=== PATIENT | female | born 1970 | race African-American/Black ===

== ENCOUNTER 2020-09-28 10:10 | Emergency (ER) | payer SELFPAY ==
[~2020-09-28] VITALS: Ht 165.1 cm; Wt 76.2 kg
[2020-09-28 10:15] VITALS: BP 143/89
--- NOTE | 2020-09-28 10:23 | NUR ---
pt arrives to ER with complaints of right ankle pain secondary to right ankle injury. pt states falling on Monday. since injury pt has complained of pain, swelling, and limited movement from extremity. pt has good cap refill. pt has applied RICE intervention.
[2020-09-28] MEDS ORDERED: TYLENOL EXTRA500 MG ORAL (11:27)
--- NOTE | 2020-09-28 13:52 | Diagnostic Imaging Report ---
Indication: Right ankle pain Technique: XRAY Ankle Compl Min 3v R Comparison: None Findings: Bone mineralization within normal limits. No acute fracture identified. Ankle mortise is intact. There is a small dorsal calcaneal enthesophyte. No radiopaque foreign body. Impression: No acute fracture or dislocation
--- NOTE | 2020-09-28 13:59 | Diagnostic Imaging Report ---
Indication: Right foot pain Technique: 3 views of the right foot Comparison: None Findings: Bone mineralization is within normal limits. No acute fracture is identified. Lisfranc ligament with what is maintained. No radiopaque foreign body. Impression: No acute fracture or dislocation.
--- NOTE | 2020-10-02 06:58 | Emergency Room Report ---
History of Present Illness General Chief Complaint: Lower Extremity Injury Source: Patient Present Illness HPI 50-year-old female presents for evaluation. Complaining of right ankle pain and swelling. States that 3 days ago she rolled her ankle. Still is having pain. Pain is throbbing, 4 out of 10, nonradiating is able to bear weight but with pain. Denies any other injuries. No other aggravating relieving factors. 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 COVID-19 Screening: Negative COVID-19 COVID-19 Testing Source: [employer] Patient History Past Medical History: none Past Surgical History: none Pertinent Family History: none Social History: Denies: smoking, alcohol use, drug use Last Menstrual Period: 12/2019 Now: No Immunizations: UTD Reviewed Nursing Documentation: PMH: Agreed; PSxH: Agreed Nursing Documentation-PMH Past Medical History: No Stated History Review of Systems All Other Systems: negative except mentioned in HPI Physical Exam Vital Signs Date Time Temp Pulse Resp B/P (MAP) Pulse Ox O2 Delivery O2 Flow Rate FiO2 09/28/20 10:15 97.9 85 17 143/89 (107) 94 Room Air Sp02 EP Interpretation: reviewed, normal General Appearance: no apparent distress, alert, GCS 15, non-toxic Head: normocephalic, atraumatic Eyes: bilateral eye normal inspection, bilateral eye PERRL ENT: hearing grossly normal, normal pharynx, no angioedema, normal voice Neck: full range of motion, supple/symm/no masses Respiratory: chest non-tender, lungs clear, normal breath sounds, speaking full sentences Cardiovascular #1: regular rate, rhythm, no edema Cardiovascular #2: 2+ carotid (R), 2+ carotid (L), 2+ radial (R), 2+ radial (L), 2+ dorsalis pedis (R), 2+ dorsalis pedis (L) Gastrointestinal: normal bowel sounds, non tender, soft, non-distended, no guarding, no rebound Rectal: deferred Genitourinary: normal inspection, no CVA tenderness Musculoskeletal: back normal, normal range of motion, gait/station normal, te nder - Right ankle Neurologic: alert, motor strength/tone normal, oriented x3, sensory intact, responsive, speech normal Psychiatric: judgement/insight normal, memory normal, mood/affect normal, no suicidal/homicidal ideation Reflexes: 3+ bicep (R), 3+ bicep (L), 3+ tricep (R), 3+ tricep (L), 3+ knee (R), 3+ knee (L) Skin: no rash Lymphatic: no adenopathy Procedures Splinting Splinting : Consent: Verbal Pre-Made Type: KEVIN wrap Pre-Proc Neuro Vasc Exam: normal Post-Proc Neuro Vasc Exam: normal Patient Tolerated: Well Complications: None Medical Decision Making Diagnostic Impression: Primary Impression: Ankle sprain Qualified Codes: S93.401A - Sprain of unspecified ligament of right ankle, initial encounter ER Course Hospital Course 50-year-old F presents to ED complaining of R foot/ankle pain s/p trip and fall Differential diagnoses include: Fracture, dislocation, sprain, contusion Clinical course Patient placed on stretcher. After initial history and physical, I ordered Xrays of R foot/ankle Xrays prelim read shows no acute fracture/dislocation. placed in kevin wrap, given crutches I discussed findings with patient. Safe for discharge with close outpatient follow-up. Does not have a PMD recently moved here. I will provide PMD referrals and Ortho referrals Diagnosis - ankle sprain Stable and discharged to home with prescription for tylenol. apply ice, keep elevated. weight bear as tolerated. Followup with PMD. Return to ED if symptoms recur or worsen Other X-Ray Diagnostic Results Other X-Ray Diagnostic Results #1: X-Ray ordered: Right foot # of Views/Limited Vs Complete: 3 View Indication: Pain EP Interpretation: Yes Interpretation: no dislocation, no soft tissue swelling, no fractures Impression: No acute disease Electronically Signed by: Electronically signed by Alexander Broderick MD Other X-Ray Diagnostic Results #2: X-Ray ordered: Right ankle # of Views/Limited Vs Complete: 3 View Indication: Pain EP Interpretation: Yes Interpretation: no dislocation, no soft tissue swelling, no fractures Impression: No acute disease Electronically Signed by: Electronically signed by Alexander Broderick MD Last Vital Signs Date Time Temp Pulse Resp B/P (MAP) Pulse Ox O2 Delivery O2 Flow Rate FiO2 09/28/20 10:15 97.9 85 17 143/89 (107) 94 Room Air Status: improved Disposition: HOME, SELF-CARE Condition: Stable Scripts Acetaminophen* (TYLENOL EXTRA STRENGTH*) 500 Mg Tablet 500 MG ORAL Q8H PRN for Prn Headache/Temp > 101, #30 TAB 0 Refills Prov: Alexander Broderick MD 09/28/20 Referrals: NOT CHOSEN IPA/MD,REFERRING (PCP) Declan Flores MD, Payam MD [place], Shamim MD [facility] Open 24 hour /7 days a week by Appointment Only [address] [facility] [address] [facility] [address] [facility] [id number] Patient Instructions: Ankle Sprain Alexander Broderick MD Oct 02, 2020 06:58
== END 2020-09-28 11:31 | disposition home or self-care (01) ==
LOC: EMR 10:43
DX: S93.401A Sprain of unspecified ligament of right ankle, initial encounter (principal); M25.571 Pain in right ankle and joints of right foot; X58.XXXA Exposure to other specified factors, initial encounter; Y92.9 Unspecified place or not applicable
CPT/HCPCS: 99284